=== PATIENT | male | born 1960 ===

== ENCOUNTER 2017-05-03 08:20 | Emergency (ER) | payer MEDICAID ==
[2017-05-03 08:28] VITALS: BMI 24.4
[2017-05-03 08:30] VITALS: BP 143/93; PULSE 74; RESP 18; TEMP 98; O2SAT 96
--- NOTE | 2017-05-03 08:44 | C.PDOC ---
History Of Present Illness 57 y/o M presents for heroin detox. Denies any symptoms currently. Denies chest pain, dyspnea, fever. Time Seen by Provider: 05/03/17 08:35 Chief Complaint (Nursing): Substance Abuse Past Medical History Vital Signs: Last Vital Signs Temp 98.0 F 05/03/17 08:28 Pulse 74 05/03/17 08:28 Resp 18 05/03/17 08:28 BP 143/93 H 05/03/17 08:28 Pulse Ox 96 05/03/17 08:28 - Medical History PMH: Anxiety, Back Problems, Depression, Hepatitis (C), HIV, Schizophrenia Denies: Diabetes, HTN, Chronic Kidney Disease, Seizures, Sexually Transmitted Disease - [employer] Procedures ANESTH INJECT-SPIN CANAL (01/05/14) GROUP PSYCHOTHERAPY (11/17/16) INDIV MARINE SAFETY OFFICER FOR SUBSTANCE ABUSE, COGNITIVE BEHAVIORAL (04/11/17) INDIVIDUAL PSYCHOTHERAPY, COGNITIVE-BEHAVIORAL (11/17/16) INJECT STEROID (01/05/14) INJECT/INFUSE NEC (05/24/13) LUMBOSAC SPINE X-RAY NEC (01/05/14) SPINAL CANAL INJECT NEC (01/05/14) Family History: States: No Known Family Hx - Social History Hx Alcohol Use: Yes Hx Substance Use: Yes (iv heroin, and cocaine, pcp) - Immunization History Hx Tetanus Toxoid Vaccination: No Hx Influenza Vaccination: No Hx Pneumococcal Vaccination: No Review Of Systems Except As Marked, All Systems Reviewed And Found Negative. Constitutional: Negative for: Fever Cardiovascular: Negative for: Chest Pain Physical Exam - Physical Exam Appears: No Acute Distress Skin: Normal Color Head: Atraumatic, Normacephalic Eye(s): bilateral: PERRL Oral Mucosa: Moist Neck: Supple Cardiovascular: Rhythm Regular Respiratory: Normal Breath Sounds Extremity: No Swelling Neurological/Psych: Normal Speech Gait: Steady ED Course And Treatment O2 Sat by Pulse Oximetry: 96 Medical Decision Making Medical Decision Making: No Detox beds available today. Given number for detox unit to ask for bed availability. Disposition - Disposition Disposition: HOME/ ROUTINE Disposition Time: 08:44 Condition: STABLE Additional Instructions: Call [phone], ask to be transferred to Crisis to ask about Detox bed availability. Instructions: Narcotic Abuse (ED) Forms: [employer] (Slovak) - Clinical Impression Clinical Impression: Drug abuse
== END 2017-05-03 08:49 | disposition home or self-care (01) ==
LOC: C.ER 08:20
DX: F11.10 Opioid abuse, uncomplicated (principal)

== ENCOUNTER 2017-05-30 15:01 | Observation (INO) | payer MEDICAID ==
[2017-05-30 15:10] VITALS: BMI 23.9
--- NOTE | 2017-05-30 15:19 | C.PDOC ---
History Of Present Illness SUICIDAL IDEATION, DEPRESSION. PS USES 20 BAGS HEROIN DAILY "IT'S TAKING OVER MY LIFE". +COCAINE, ETOH. DENIES OTHER DRUG USE. STATES MAY OVERDOSE EXAM PSYCH CALM COOPERATIVE, DEPRESSED +SI. NO ACUTE INTOX OR WITHDRAWAL REMAINDER NEG Time Seen by Provider: 05/30/17 15:10 Chief Complaint (Nursing): Psychiatric Evaluation History Per: Patient History/Exam Limitations: no limitations Onset/Duration Of Symptoms: Persistent Current Symptoms Are (Timing): Still Present Modifying Factor(s): Narcotics, Cocaine Associated Symptoms: Depression, Suicidal Thoughts Recent travel outside of the [place]: No Past Medical History Reviewed: Historical Data, Nursing Documentation, Vital Signs Vital Signs: Last Vital Signs Temp 98.4 F 05/30/17 19:20 Pulse 58 L 05/30/17 22:58 Resp 18 05/30/17 22:58 BP 112/72 05/30/17 22:58 Pulse Ox 99 05/30/17 22:58 - Medical History PMH: Anxiety, Back Problems, Bipolar Disorder, Depression, Hepatitis (C), HIV, Schizophrenia - [facility] Procedures ANESTH INJECT-SPIN CANAL (01/05/14) GROUP PSYCHOTHERAPY (11/17/16) INDIV TORCH STRAIGHTENER AND HEATER FOR SUBSTANCE ABUSE, COGNITIVE BEHAVIORAL (04/11/17) INDIVIDUAL PSYCHOTHERAPY, COGNITIVE-BEHAVIORAL (11/17/16) INJECT STEROID (01/05/14) INJECT/INFUSE NEC (05/24/13) LUMBOSAC SPINE X-RAY NEC (01/05/14) SPINAL CANAL INJECT NEC (01/05/14) Family History: States: Unknown Family Hx - Social History Hx Alcohol Use: Yes (30 years) Hx Substance Use: Yes (iv heroin, and cocaine, pcp) - Immunization History Hx Tetanus Toxoid Vaccination: No Hx Influenza Vaccination: Yes Hx Pneumococcal Vaccination: Yes Review Of Systems Except As Marked, All Systems Reviewed And Found Negative. Constitutional: Negative for: Fever, Chills Cardiovascular: Negative for: Chest Pain, Palpitations Respiratory: Negative for: Cough, Shortness of Breath, Wheezing Gastrointestinal: Negative for: Nausea, Vomiting, Abdominal Pain Skin: Negative for: Rash Psych: Positive for: Depression, Suicidal ideation. Negative for: Withdrawal Physical Exam - Physical Exam Appears: Non-toxic, No Acute Distress, Other (NO ACUTE INTOX OR WITHDRAWAL) Skin: Warm, Dry Head: Atraumatic, Normacephalic Oral Mucosa: Moist Chest: Symmetrical Cardiovascular: Rhythm Regular Respiratory: Normal Breath Sounds, No Accessory Muscle Use, No Rales, No Rhonchi , No Wheezing Gastrointestinal/Abdominal: Soft, No Tenderness, No Guarding, No Rebound Back: Normal Inspection Extremity: Normal ROM, Capillary Refill (< 2 sec.) Neurological/Psych: Oriented x3, Other (PSYCH CALM COOPERATIVE, DEPRESSED +SI. ) ED Course And Treatment - Laboratory Results Result Diagrams: 05/30/17 15:57 05/30/17 15:57 ECG: Interpreted By Me ECG Rhythm: Sinus Rhythm ECG Interpretation: Normal Rate From EC O2 Sat by Pulse Oximetry: 95 (ra) Pulse Ox Interpretation: Normal - Radiology CXR: Interpreted by Me CXR Interpretation: Yes: No Acute Disease Progress - Data Reviewed Data Reviewed: Lab, Old records ED OBSERVATION Discharge: Yes Date of observation admission: 05/30/17 Time of observation admission: 15:30 - Observation admission statement Patient is being placed in observation because:: SUICIDAL IDEATION; HEROIN ABUSE - Goals of Observation Goals of observation are:: PSYCH EVAL, MED CLEAR - Progress Note Progress Note: 05/30/17 15:29 LABS, UA, CRISIS EVAL ORDERED. PT ON 1:1 SUICIDE PRECAUTION IN ED. 05/30/17 17:04 MED CLEAR FOR PSYCH EVAL. CRISIS NOTIFIED. 05/30/17 17:12 PER CRISIS, PT REQUIRES ADMISSION BUT NO BED AVAIL. WILL TRANSFER. REQUEST EKG, CXR FOR TRANSFER 05/30/17 18:45 s/o dr arturo acosta dispo Disposition - Disposition Disposition: Trans to Other Acute Care Hosp Disposition Time: 23:07 Condition: STABLE - Clinical Impression Clinical Impression: Polysubstance abuse, Moderate major depression, single episode - Scribe Statement The provider has reviewed the documentation as recorded by the Scribe SM All medical record entries made by the Scribe were at my direction and personally dictated by me. I have reviewed the chart and agree that the record accurately reflects my personal performance of the history, physical exam, medical decision making, and the department course for this patient. I have also personally directed, reviewed, and agree with the discharge instructions and disposition.
[2017-05-30 16:04] LABS: BASO % 0.4 % (0.0-2.0); EOS # 0.1 K/uL (0.0-0.7); EOS % 1.8 % (0.0-4.0); HEMATOCRIT 40.3 % (35.0-51.0); LYMPH # 2.3 K/uL (1.0-4.3); LYMPH % 38.6 % (20.0-40.0); MEAN CORPUSCULAR HEMOGLOBIN 30.5 pg (27.0-31.0); MEAN CORPUSCULAR HGB CONC 33.1 g/dL (33.0-37.0); MEAN PLATELET VOLUME 7.2 fL (7.2-11.7); MONO # 0.6 K/uL (0.0-0.8); MONO % 10.3 % (0.0-10.0); RED CELL DISTRIBUTION WIDTH 13.1 % (11.5-14.5)
[2017-05-30 16:10] LABS: RBC URINE 2 /hpf (0-3); URINE BILIRUBIN NEGATIVE (NEGATIVE); URINE BLOOD NEGATIVE (NEGATIVE); URINE COLOR Yellow (YELLOW); URINE GLUCOSE (UA) NORMAL (Normal); URINE KETONE NEGATIVE (NEGATIVE); URINE LEUKOCYTE ESTERASE NEG Leu/uL (Negative); URINE PROTEIN NEGATIVE (NEGATIVE); URINE UROBILINOGEN NORMAL mg/dL (0.2-1.0); WBC URINE 1 /hpf (0-5)
[2017-05-30 16:14] LABS: CHLORIDE 102 mmol/L (98-107); POTASSIUM 4.3 mmol/L (3.6-5.2); SODIUM 136 mmol/L (132-148)
[2017-05-30 16:16] LABS: AST/SGOT 49 U/L (17-59); BILIRUBIN,TOTAL 0.4 mg/dL (0.2-1.3); CARBON DIOXIDE 26 mmol/L (22-30); GFR AFRICAN-AMERICAN > 60
[2017-05-30 16:17] LABS: ALB/GLOB RATIO 1.2 (1.0-2.1); ALCOHOL SERUM < 10 mg/dl (0-10); ALKALINE PHOSPHATASE 83 U/L (38-126); ALT/SGPT 64 U/L (21-72); BLOOD UREA NITROGEN 7 mg/dL (9-20); CALCIUM 8.2 mg/dl (8.6-10.4); GLUCOSE,RANDOM 92 mg/dL (75-110); TOTAL PROTEIN 6.7 g/dL (6.3-8.3)
--- NOTE | 2017-05-30 18:17 | RAD ---
HISTORY: med clear COMPARISON: Chest x-ray performed 07/14/12. TECHNIQUE: Chest, one view. FINDINGS: LUNGS: No focal consolidation. Please note that chest x-ray has limited sensitivity for the detection of pulmonary masses. PLEURA: No significant pleural effusion identified. No definite pneumothorax . CARDIOVASCULAR: Heart size appears top normal. OSSEOUS STRUCTURES: No acute osseous abnormality identified. VISUALIZED UPPER ABDOMEN: Unremarkable. OTHER FINDINGS: None. IMPRESSION: No focal consolidation, significant pleural effusion, or definite pneumothorax identified.
[2017-05-30 19:39] VITALS: TEMP 98.4
[2017-05-30 22:59] VITALS: BP 112/72; PULSE 58; RESP 18
[2017-05-31 19:15] VITALS: O2SAT 95
== END 2017-05-30 23:07 | disposition short-term general hospital (02) ==
LOC: C.ER 15:01 → C.9OBSV 19:55
PROVIDERS: ADMIT Emergency Medicine; ATTEND Emergency Medicine
DX: F32.1 Major depressive disorder, single episode, moderate (principal); R45.851 Suicidal ideations; F11.10 Opioid abuse, uncomplicated; F14.129 Cocaine abuse with intoxication, unspecified
CPT/HCPCS: 71010; 80053; 80320; 80324; 80345; 80346; 80349; 80353; 80358; 80361; 81001; 83992; 85025; 99284; G0378